=== PATIENT | female | born 1980 | race Hispanic/Latino ===

== ENCOUNTER 2022-08-15 15:10 | Inpatient (IN) | payer MEDICARE, OTHER ==
[~2022-08-15 15:10] MED LIST: Iopamidol-370 76% 500 ML MDV (1 ML CHARGE) ONE
[2022-08-15] MEDS ORDERED: fentaNYL 50 mcg/mL 1 mL Vial ONE (15:25)
[2022-08-15] MEDS ORDERED: Ondansetron PF 4 MG/2 ML Vial ONE (15:25)
[2022-08-15 15:44] LABS: #Eosinphils 0.1 thou/uL (0.0-0.7); #Monocytes 0.6 thou/uL (0.11-0.59); #Neutrophils 9.2 thou/uL (1.40-6.50); %Basophils 0.3 % (0.0-1.0); %Eosinophils 0.7 % (0.0-10.0); %Lymphocytes 21.1 % (21.0-51.0); %Monocytes 4.8 % (0.0-10.0); %Neutrophils 72.8 % (42.0-75.0); Hemoglobin 13.5 g/dL (12.0-16.0); Mean Corpuscular HGB CONC 32.4 g/dL (32.0-36.0); Mean Corpuscular Hemoglobin 29.2 pg (27.0-31.0); Mean Corpuscular Volume 90.3 fl (78.0-98.0); Mean Platelet Volume 10.4 fL (7.4-10.4); Platelet Count 363 10x3/uL (130-400); RBC Distribution Width 13.9 % (11.5-14.5); Red Blood Cell (RBC) Count 4.62 mill/uL (4.20-5.40); White Blood Cell (WBC) Count 12.6 10x3/uL (4.8-10.8)
[2022-08-15 16:08] LABS: ALT (SGPT) 50 U/L (8-55); AST (SGOT) 41 U/L (5-34); Albumin 4.2 g/dL (3.5-5.0); Alkaline Phosphatase 102 U/L (40-110); Anion Gap 18 mmol/L (10-20); BUN (Urea Nitrogen) 8 mg/dL (7.0-18.7); Bilirubin, Total 0.3 mg/dL (0.2-1.2); Calc. Creatinine Clearance 0 mL/min (70-130); Calcium 9.6 mg/dL (7.8-10.44); Carbon Dioxide 19 mmol/L (22-29); Chloride 106 mmol/L (98-107); Estimated GFR 84; Globulin 2.8 g/dL (2.4-3.5); Glucose 101 mg/dL (70-105); Lipase 19 U/L (8-78); Potassium 3.5 mmol/L (3.5-5.1); Sodium 139 mmol/L (136-145)
[2022-08-15] MEDS ORDERED: LORazepam 2 MG/ML SYR.(CARPUJECT) ONE (16:13)
[2022-08-15] MEDS ORDERED: Morphine 4 MG/ML VIAL ONE (16:33)
[2022-08-15] MEDS ORDERED: Piperacillin/Tazobactam 4.5 GM VIAL ONE (16:34)
[2022-08-15] MEDS ORDERED: Dicyclomine 20 MG/2 ML VIAL ONE (16:34)
[2022-08-15 16:53] LABS: Bilirubin Negative (Negative); Blood, Urine Negative (Negative); CAUTI Indications for Culture Pelvic or flank pain; Clarity Clear (Clear); Glucose, Urine (Dipstick) Normal (Negative); Ketone, Urine Negative (Negative); Leukocyte Negative Leu/uL (Negative); Nitrite Negative (Negative); Protein, Urine (Dipstick) 20 mg/dL (Neg-Trace); Specific Gravity, Urine 1.043 (1.002-1.036); Squamous Epithelial 21-50 HPF (0-3); Urobilinogen Normal mg/dL (Less than 2)
[2022-08-15 16:54] LABS: Bacteria/HPF 1+ HPF (None Seen)
[2022-08-15 16:55] LABS: Urine Culture Reflex No No
[2022-08-15] MEDS ORDERED: Acetaminophen 325 MG TAB PO PRN (17:43)
[2022-08-15] MEDS ORDERED: Dextrose 5% in Water 1,000 ML IV PRN (17:55)
[2022-08-15] MEDS ORDERED: Glucagon 1 MG/ML KIT IM PRN (17:55)
[2022-08-15] MEDS ORDERED: HumaLOG 300 UNITS/3 ML VIAL SC PRN ×2 (17:55)
[2022-08-15] MEDS ORDERED: Dextrose 50% Abboject 50 ML SYRINGE SLOW IVP PRN (17:55)
[2022-08-15 18:44] LABS: Lactic Acid 1.8 mmol/L (0.5-2.2)
[2022-08-15 18:51] VITALS: BMI 54.1
[2022-08-15] MEDS: Arformoterol 15 MCG/2 ML NEB NEB SCH (18:52)
[2022-08-15] MEDS: Budesonide 0.5 MG/2 ML NEB NEB SCH (18:52)
[2022-08-15] MEDS: Morphine 4 MG/ML VIAL SLOW IVP PRN ×2 (18:55→23:48)
[2022-08-15] MEDS: Ondansetron PF 4 MG/2 ML Vial IVP PRN (18:55)
[2022-08-15] MEDS: Sodium Chloride 0.9% 1,000 ML IV SCH (18:56)
[2022-08-15] MEDS: Piperacillin/Tazobactam 3.375 GM in Sodium Chloride 0.9% 100 ML IVPB SCH (20:20)
[2022-08-15] MEDS: Pregabalin 50 MG CAP PO SCH (20:20)
[2022-08-15] MEDS: tiZANidine HCl 4 MG TAB PO SCH (20:21)
[2022-08-15] MEDS: Pantoprazole 40 MG VIAL IVP SCH (20:21)
[2022-08-15] MEDS: Topiramate 100 MG TAB PO SCH (20:21)
[2022-08-15] MEDS: traZODone HCl 50 MG TAB PO SCH (20:22)
[2022-08-15] MEDS: oxyCODONE/Acetaminophen 5 mg/325 mg Tablet PO PRN (20:50)
[2022-08-15] MEDS: ALPRAZolam 1 MG TAB PO PRN (20:51)
[2022-08-15] MEDS ORDERED: OXcarbazepine 300 MG TAB PO SCH (21:00)
[2022-08-16] MEDS: Piperacillin/Tazobactam 3.375 GM in Sodium Chloride 0.9% 100 ML IVPB SCH ×3 (03:41→21:39)
[2022-08-16] MEDS: Morphine 4 MG/ML VIAL SLOW IVP PRN ×2 (03:50→08:32)
[2022-08-16 06:23] LABS: #Eosinphils 0.2 thou/uL (0.0-0.7); #Monocytes 0.7 thou/uL (0.11-0.59); #Neutrophils 6.3 thou/uL (1.40-6.50); %Basophils 0.3 % (0.0-1.0); %Eosinophils 1.7 % (0.0-10.0); %Lymphocytes 28.1 % (21.0-51.0); %Monocytes 7.1 % (0.0-10.0); %Neutrophils 62.6 % (42.0-75.0); Hemoglobin 11.9 g/dL (12.0-16.0); Mean Corpuscular HGB CONC 32.3 g/dL (32.0-36.0); Mean Corpuscular Hemoglobin 29.6 pg (27.0-31.0); Mean Corpuscular Volume 91.5 fl (78.0-98.0); Mean Platelet Volume 9.8 fL (7.4-10.4); Red Blood Cell (RBC) Count 4.02 mill/uL (4.20-5.40); White Blood Cell (WBC) Count 10.1 10x3/uL (4.8-10.8)
[2022-08-16 06:28] LABS: Platelet Count 255 10x3/uL (130-400)
[2022-08-16 06:43] LABS: Anion Gap 12 mmol/L (10-20); BUN (Urea Nitrogen) 8 mg/dL (7.0-18.7); Calc. Creatinine Clearance 201 mL/min (70-130); Calcium 8.9 mg/dL (7.8-10.44); Carbon Dioxide 23 mmol/L (22-29); Chloride 110 mmol/L (98-107); Estimated GFR 95; Glucose 83 mg/dL (70-105); Potassium 3.5 mmol/L (3.5-5.1); Sodium 141 mmol/L (136-145)
[2022-08-16] MEDS: Arformoterol 15 MCG/2 ML NEB NEB SCH (07:02)
[2022-08-16] MEDS: Budesonide 0.5 MG/2 ML NEB NEB SCH (07:02)
[2022-08-16] MEDS: Bupropion 150 MG XL TAB PO SCH (08:31)
[2022-08-16] MEDS: Pregabalin 50 MG CAP PO SCH ×3 (08:31→21:34)
[2022-08-16] MEDS: DULoxetine 60 MG CAP PO SCH (08:31)
[2022-08-16] MEDS: tiZANidine HCl 4 MG TAB PO SCH ×3 (08:31→21:35)
[2022-08-16] MEDS: Topiramate 100 MG TAB PO SCH ×2 (08:32→21:34)
[2022-08-16] MEDS: Ondansetron PF 4 MG/2 ML Vial IVP PRN (08:39)
[2022-08-16] MEDS ORDERED: Polyethylene Glycol 3350 17 GM Packet PO SCH (12:15)
[2022-08-16] MEDS ORDERED: Hydrocortisone Acetate 25 MG Suppository PR SCH (12:15)
[2022-08-16] MEDS ORDERED: Docusate 100 MG CAP PO SCH (12:15)
[2022-08-16] MEDS: oxyCODONE/Acetaminophen 5 mg/325 mg Tablet PO PRN ×3 (13:44→22:09)
[2022-08-16] MEDS: Mometasone 200 MCG/Formoterol 5 MCG 120 PUFF INHALER INH SCH (18:48)
[2022-08-16] MEDS: ALPRAZolam 1 MG TAB PO PRN (21:34)
[2022-08-16] MEDS: Pantoprazole 40 MG VIAL IVP SCH (21:35)
[2022-08-16] MEDS: Polyethylene Glycol 3350 17 GM Packet PO SCH (21:35)
[2022-08-16] MEDS: Sodium Chloride 0.9% 1,000 ML IV SCH ×2 (21:39→22:52)
[2022-08-16] MEDS: traZODone HCl 50 MG TAB PO SCH (22:09)
[2022-08-16 23:11] LABS: Campy jejuni + coli by PCR Negative (Negative); STEC Shiga Toxin 1+2 Negative (Negative); Salmonella spp. by PCR Negative (Negative); Shigella spp + EIEC by PCR Negative (Negative)
[2022-08-17 00:42] VITALS: TEMP 97.8
[2022-08-17] MEDS: Piperacillin/Tazobactam 3.375 GM in Sodium Chloride 0.9% 100 ML IVPB SCH (03:05)
[2022-08-17] MEDS: Mometasone 200 MCG/Formoterol 5 MCG 120 PUFF INHALER INH SCH (07:25)
[2022-08-17] MEDS: Pregabalin 50 MG CAP PO SCH (07:56)
[2022-08-17] MEDS: Polyethylene Glycol 3350 17 GM Packet PO SCH (07:56)
[2022-08-17] MEDS: Bupropion 150 MG XL TAB PO SCH (07:56)
[2022-08-17] MEDS: Topiramate 100 MG TAB PO SCH (07:57)
[2022-08-17] MEDS: tiZANidine HCl 4 MG TAB PO SCH (07:57)
[2022-08-17] MEDS: DULoxetine 60 MG CAP PO SCH (07:57)
[2022-08-17] MEDS: oxyCODONE/Acetaminophen 5 mg/325 mg Tablet PO PRN (08:00)
[2022-08-17 08:34] VITALS: BP 115/69
[2022-08-17] MEDS ORDERED: Docusate 100 MG CAP PO SCH (09:00)
== END 2022-08-17 13:03 | disposition home or self-care (01) | DRG 392 ==
LOC: ERS 15:10 → T4-B 16:52 → OBSVTOIN 08-16 13:07
PROVIDERS: ADMIT Family Medicine; ATTEND Internal Medicine
DX: K59.09 Other constipation (principal); Z68.43 Body mass index [BMI] 50.0-59.9, adult; J96.11 Chronic respiratory failure with hypoxia; E87.20 Acidosis, unspecified; J44.9 Chronic obstructive pulmonary disease, unspecified; E11.9 Type 2 diabetes mellitus without complications; E66.01 Morbid (severe) obesity due to excess calories; G89.29 Other chronic pain; F32.A Depression, unspecified; F41.9 Anxiety disorder, unspecified; G47.33 Obstructive sleep apnea (adult) (pediatric); E66.9 Obesity, unspecified; G40.909 Epilepsy, unspecified, not intractable, without status epilepticus; I50.9 Heart failure, unspecified; K64.8 Other hemorrhoids; K64.4 Residual hemorrhoidal skin tags; Z98.2 Presence of cerebrospinal fluid drainage device; Z79.899 Other long term (current) drug therapy; Z79.891 Long term (current) use of opiate analgesic; Z79.84 Long term (current) use of oral hypoglycemic drugs; Z98.84 Bariatric surgery status; Z87.891 Personal history of nicotine dependence
CPT/HCPCS: 36415; 36416; 74177; 80048; 80053; 81001; 82274; 83605; 83690; 85025; 87040; 87324; 87449; 87505; 93005; 94640; 96375; 96376; C9113; G0378; J2060; J2270; J2405; J2543; J3010; J3490; J7050; J7611; J7626; Q9967

== ENCOUNTER 2022-10-30 01:13 | Emergency (ER) | payer MEDICARE, OTHER ==
[2022-10-30 01:52] LABS: #Eosinphils 0.2 thou/uL (0.0-0.7); #Monocytes 0.6 thou/uL (0.11-0.59); #Neutrophils 8.6 thou/uL (1.40-6.50); %Basophils 0.2 % (0.0-1.0); %Eosinophils 1.5 % (0.0-10.0); %Monocytes 4.9 % (0.0-10.0); %Neutrophils 68.1 % (42.0-75.0); Hematocrit 37.9 % (36.0-47.0); Hemoglobin 12.2 g/dL (12.0-16.0); Mean Corpuscular HGB CONC 32.2 g/dL (32.0-36.0); Mean Corpuscular Hemoglobin 29.6 pg (27.0-31.0); Platelet Count 280 10x3/uL (130-400); RBC Distribution Width 13.8 % (11.5-14.5); Red Blood Cell (RBC) Count 4.12 mill/uL (4.20-5.40); White Blood Cell (WBC) Count 12.6 10x3/uL (4.8-10.8)
[2022-10-30] MEDS ORDERED: Acetaminophen 500 MG TAB ONE (01:53)
[2022-10-30 02:01] LABS: BHCG - Serum Negative (NEGATIVE); Pregs Control Background? CLEAR/WHITE (CLR/WHITE); Pregs Control Bar Appear? YES (CONTROL BAR)
[2022-10-30 02:21] LABS: ALT (SGPT) 26 U/L (8-55); AST (SGOT) 19 U/L (5-34); Albumin 3.9 g/dL (3.5-5.0); Alkaline Phosphatase 112 U/L (40-110); Anion Gap 15 mmol/L (10-20); BUN (Urea Nitrogen) 10 mg/dL (7.0-18.7); Bilirubin, Total Less than 0.2 mg/dL (0.2-1.2); Calc. Creatinine Clearance 0 mL/min (70-130); Calcium 9.8 mg/dL (7.8-10.44); Carbon Dioxide 18 mmol/L (22-29); Chloride 114 mmol/L (98-107); Estimated GFR 84; Globulin 2.8 g/dL (2.4-3.5); Glucose 87 mg/dL (70-105); Potassium 3.5 mmol/L (3.5-5.1); Protein, Total 6.7 g/dL (6.0-8.3); Sodium 143 mmol/L (136-145)
[2022-10-30] MEDS ORDERED: Morphine 4 MG/ML VIAL ONE (02:28)
[2022-10-30] MEDS ORDERED: ALPRAZolam 0.25 MG TAB ONE (03:13)
[2022-10-30] MEDS ORDERED: Iopamidol-370 76% 500 ML MDV (1 ML CHARGE) ONE (10:58)
== END 2022-10-30 06:24 | disposition home or self-care (01) ==
LOC: ERS 01:13
DX: K92.1 Melena (principal); I11.0 Hypertensive heart disease with heart failure; I50.9 Heart failure, unspecified; E11.9 Type 2 diabetes mellitus without complications; J44.9 Chronic obstructive pulmonary disease, unspecified
CPT/HCPCS: 36415; 74174; 80053; 84703; 85025; 86850; 86900; 86901; 93005; 94760; 96374; 96375; J1790; J2270

== ENCOUNTER 2023-02-23 23:35 | Emergency (ER) | payer MEDICARE, OTHER ==
[2023-02-24] MEDS ORDERED: Ondansetron PF 4 MG/2 ML Vial ONE (00:53)
[2023-02-24] MEDS ORDERED: Morphine 4 MG/ML VIAL ONE (00:53)
[2023-02-24 01:06] LABS: #Eosinphils 0.2 thou/uL (0.0-0.7); #Monocytes 0.9 thou/uL (0.11-0.59); #Neutrophils 7.8 thou/uL (1.40-6.50); %Basophils 0.2 % (0.0-1.0); %Eosinophils 1.6 % (0.0-10.0); %Lymphocytes 29.9 % (21.0-51.0); %Monocytes 7.2 % (0.0-10.0); %Neutrophils 60.7 % (42.0-75.0); Hematocrit 33.8 % (36.0-47.0); Hemoglobin 10.6 g/dL (12.0-16.0); Mean Corpuscular HGB CONC 31.4 g/dL (32.0-36.0); Mean Corpuscular Hemoglobin 29.4 pg (27.0-31.0); Mean Corpuscular Volume 93.9 fl (78.0-98.0); Mean Platelet Volume 10.6 fL (7.4-10.4); Platelet Count 241 10x3/uL (130-400); RBC Distribution Width 14.3 % (11.5-14.5); White Blood Cell (WBC) Count 12.8 10x3/uL (4.8-10.8)
[2023-02-24 01:34] LABS: ALT (SGPT) 12 U/L (8-55); AST (SGOT) 10 U/L (5-34); Albumin 3.4 g/dL (3.5-5.0); Alkaline Phosphatase 100 U/L (40-110); Anion Gap 11 mmol/L (10-20); BUN (Urea Nitrogen) 18 mg/dL (7.0-18.7); Bilirubin, Total 0.2 mg/dL (0.2-1.2); Calc. Creatinine Clearance 0 mL/min (70-130); Calcium 8.2 mg/dL (7.8-10.44); Carbon Dioxide 20 mmol/L (22-29); Chloride 112 mmol/L (98-107); Estimated GFR 95; Globulin 2.6 g/dL (2.4-3.5); Glucose 108 mg/dL (70-105); Lipase 65 U/L (8-78); Potassium 4.2 mmol/L (3.5-5.1); Sodium 139 mmol/L (136-145)
[2023-02-24] MEDS ORDERED: Iopamidol-370 76% 500 ML MDV (1 ML CHARGE) ONE (09:07)
== END 2023-02-24 04:35 | disposition home or self-care (01) ==
LOC: ERS 23:35
DX: K64.4 Residual hemorrhoidal skin tags (principal); R10.32 Left lower quadrant pain; I11.0 Hypertensive heart disease with heart failure; I50.9 Heart failure, unspecified; J44.9 Chronic obstructive pulmonary disease, unspecified; E11.9 Type 2 diabetes mellitus without complications
CPT/HCPCS: 36415; 74177; 80053; 83690; 85025; 96374; 96375; J2270; J2405; Q9967

== ENCOUNTER 2023-03-16 12:47 | Emergency (ER) | payer OTHER ==
[2023-03-16] MEDS ORDERED: Ondansetron PF 4 MG/2 ML Vial ONE (13:28)
[2023-03-16] MEDS ORDERED: Morphine 4 MG/ML VIAL ONE (13:28)
[2023-03-16 14:17] LABS: #Eosinphils 0.2 thou/uL (0.0-0.7); #Monocytes 0.6 thou/uL (0.11-0.59); #Neutrophils 6.8 thou/uL (1.40-6.50); %Basophils 0.2 % (0.0-1.0); %Eosinophils 1.6 % (0.0-10.0); %Lymphocytes 24.9 % (21.0-51.0); %Monocytes 6.2 % (0.0-10.0); %Neutrophils 66.8 % (42.0-75.0); Hematocrit 35.3 % (36.0-47.0); Hemoglobin 11.1 g/dL (12.0-16.0); Mean Corpuscular HGB CONC 31.4 g/dL (32.0-36.0); Mean Corpuscular Hemoglobin 29.1 pg (27.0-31.0); Mean Corpuscular Volume 92.4 fl (78.0-98.0); Platelet Count 299 10x3/uL (130-400); Red Blood Cell (RBC) Count 3.82 mill/uL (4.20-5.40); White Blood Cell (WBC) Count 10.1 10x3/uL (4.8-10.8)
[2023-03-16 14:43] LABS: ALT (SGPT) 16 U/L (8-55); AST (SGOT) 15 U/L (5-34); Albumin 3.8 g/dL (3.5-5.0); Alkaline Phosphatase 102 U/L (40-110); Anion Gap 7 mmol/L (10-20); BUN (Urea Nitrogen) 18 mg/dL (7.0-18.7); Bilirubin, Total Less than 0.2 mg/dL (0.2-1.2); Calc. Creatinine Clearance 0 mL/min (70-130); Calcium 8.6 mg/dL (7.8-10.44); Carbon Dioxide 24 mmol/L (22-29); Chloride 113 mmol/L (98-107); Estimated GFR 93; Globulin 2.9 g/dL (2.4-3.5); Glucose 115 mg/dL (70-105); Magnesium 2.1 mg/dL (1.6-2.6); Potassium 3.8 mmol/L (3.5-5.1); Protein, Total 6.7 g/dL (6.0-8.3); Sodium 140 mmol/L (136-145)
[2023-03-16 14:45] LABS: Troponin I Less than 0.010 ng/mL (< 0.028)
[2023-03-16 15:56] LABS: Bilirubin Negative (Negative); Blood, Urine Negative (Negative); CAUTI Indications for Culture Pelvic or flank pain; Clarity Turbid (Clear); Glucose, Urine (Dipstick) Normal (Negative); Ketone, Urine Negative (Negative); Leukocyte 75 Leu/uL (Negative); Nitrite Negative (Negative); Protein, Urine (Dipstick) Negative (Neg-Trace); RBC/HPF 0-3 HPF (0-3); Specific Gravity, Urine 1.018 (1.002-1.036); Squamous Epithelial 21-50 HPF (0-3); Urobilinogen Normal mg/dL (Less than 2); WBC/HPF 0-3 HPF (0-3); pH, Urine 5.5 (5.0-9.0)
[2023-03-16 16:06] LABS: Bacteria/HPF 1+ HPF (None Seen)
[2023-03-16 16:08] LABS: Urine Culture Reflex No No
[2023-03-16] MEDS ORDERED: Ketorolac Tromethamine 30 MG (1 mL) VIAL ONE (17:14)
== END 2023-03-16 18:50 | disposition home or self-care (01) ==
LOC: ERS 12:47
DX: S09.90XA Unspecified injury of head, initial encounter (principal); S39.012A Strain of muscle, fascia and tendon of lower back, initial encounter; I50.9 Heart failure, unspecified; J44.9 Chronic obstructive pulmonary disease, unspecified; E11.9 Type 2 diabetes mellitus without complications; W01.0XXA Fall on same level from slipping, tripping and stumbling without subsequent striking against object, initial encounter; Z79.84 Long term (current) use of oral hypoglycemic drugs; Z79.899 Other long term (current) drug therapy
CPT/HCPCS: 70450; 71045; 72100; 72125; 80053; 81001; 83735; 84484; 85025; 93005; 96374; 96375; J1885; J2270; J2405

== ENCOUNTER 2023-04-13 20:56 | Emergency (ER) | payer OTHER ==
[2023-04-13] MEDS ORDERED: Ketorolac Tromethamine 30 MG (1 mL) VIAL ONE (22:32)
[2023-04-13] MEDS ORDERED: HYDROcodone/Acetaminophen 10/325 mg Tablet ONE (23:30)
== END 2023-04-13 23:58 | disposition home or self-care (01) ==
LOC: ERS 20:56
DX: S00.03XA Contusion of scalp, initial encounter (principal); S80.02XA Contusion of left knee, initial encounter; I50.9 Heart failure, unspecified; E11.9 Type 2 diabetes mellitus without complications; J44.9 Chronic obstructive pulmonary disease, unspecified; W18.30XA Fall on same level, unspecified, initial encounter
CPT/HCPCS: 70450; 72170; 96372; J1885

== ENCOUNTER 2023-07-18 23:40 | Observation (INO) | payer MEDICARE, OTHER ==
[2023-07-19 01:49] LABS: #Basophils Less than 0.03 10x3/uL (0.0-0.2); %Basophils 0.2 % (0.0-1.0); %Eosinophils 1.2 % (0.0-10.0); %Lymphocytes 27.1 % (21.0-51.0); %Monocytes 3.8 % (0.0-10.0); %Neutrophils 67.5 % (42.0-75.0); Hematocrit 40.7 % (36.0-47.0); Mean Corpuscular HGB CONC 31.9 g/dL (32.0-36.0); Mean Corpuscular Hemoglobin 28.7 pg (27.0-31.0); Mean Corpuscular Volume 89.8 fL (78.0-98.0); Mean Platelet Volume 9.6 fL (7.4-10.4); Platelet Count 305 10x3/uL (130-400); Red Blood Cell (RBC) Count 4.53 mill/uL (4.20-5.40)
[2023-07-19 02:04] LABS: INR-International Normal Ratio 0.7; Prothrombin Time 10.3 sec (12.0-14.7)
[2023-07-19 02:05] LABS: PTT 23.3 sec (22.9-36.1)
[2023-07-19 02:10] LABS: Anion Gap 16 mmol/L (10-20); BUN (Urea Nitrogen) 12 mg/dL (7.0-18.7); Calc. Creatinine Clearance 0 mL/min (70-130); Carbon Dioxide 22 mmol/L (22-29); Chloride 109 mmol/L (98-107); Potassium 3.6 mmol/L (3.5-5.1); Sodium 143 mmol/L (136-145)
[2023-07-19 02:11] LABS: ALT (SGPT) 32 U/L (8-55); AST (SGOT) 22 U/L (5-34); Albumin 3.8 g/dL (3.5-5.0); Alkaline Phosphatase 111 U/L (40-110); Bilirubin, Total 0.4 mg/dL (0.2-1.2); Calcium 9.7 mg/dL (7.8-10.44); Estimated GFR 82; Globulin 3.8 g/dL (2.4-3.5); Glucose 87 mg/dL (70-105); Protein, Total 7.6 g/dL (6.0-8.3)
[2023-07-19] MEDS ORDERED: Morphine 4 MG/ML VIAL ONE (03:38)
[2023-07-19 04:53] LABS: BHCG - Serum Negative (NEGATIVE); Pregs Control Background? CLEAR/WHITE (CLR/WHITE); Pregs Control Bar Appear? YES (CONTROL BAR)
[2023-07-19 06:33] LABS: Bilirubin Negative (Negative); Blood, Urine Negative (Negative); Glucose, Urine (Dipstick) Negative (Negative); Ketone, Urine Negative (Negative); Leukocyte Negative (Negative); Nitrite Negative (Negative); Protein, Urine (Dipstick) Negative (Neg-Trace); Specific Gravity, Urine 1.015 (1.005-1.030); Urobilinogen 0.2 mg/dL (Less than 2); pH, Urine 5.5 (5.0-9.0)
[2023-07-19 06:41] LABS: Bacteria/HPF None Seen HPF (None Seen); CAUTI Indications for Culture Pelvic or flank pain; RBC/HPF 0-3 HPF (0-3); Squamous Epithelial 0-3 HPF (0-3); WBC/HPF 0-3 HPF (0-3)
[2023-07-19 06:44] LABS: Clarity Clear (Clear)
[2023-07-19 06:46] LABS: Urine Culture Reflex No No
[2023-07-19] MEDS ORDERED: Guaifenesin DM 100-10/5 ML UDCUP PO PRN (07:40)
[2023-07-19] MEDS ORDERED: Glucagon 1 MG/ML KIT IM PRN (07:46)
[2023-07-19] MEDS ORDERED: HumaLOG 300 UNITS/3 ML VIAL SC PRN (07:46)
[2023-07-19] MEDS ORDERED: Dextrose 50% Abboject 50 ML SYRINGE SLOW IVP PRN (07:46)
[2023-07-19] MEDS ORDERED: Dextrose 5% in Water 1,000 ML IV PRN (07:46)
[2023-07-19] MEDS: Promethazine HCl 25 MG in Sodium Chloride 0.9% 50 ML IVPB SCH (08:51)
[2023-07-19] MEDS: Sodium Chloride 0.9% 1,000 ML IV SCH (08:51)
[2023-07-19 09:06] LABS: #Basophils Less than 0.03 10x3/uL (0.0-0.2); %Basophils 0.2 % (0.0-1.0); %Eosinophils 1.3 % (0.0-10.0); %Lymphocytes 27.5 % (21.0-51.0); %Monocytes 5.5 % (0.0-10.0); %Neutrophils 65.3 % (42.0-75.0); Hematocrit 35.8 % (36.0-47.0); Hemoglobin 11.5 g/dL (12.0-16.0); Mean Corpuscular HGB CONC 32.1 g/dL (32.0-36.0); Mean Corpuscular Hemoglobin 28.7 pg (27.0-31.0); Mean Corpuscular Volume 89.3 fL (78.0-98.0); Mean Platelet Volume 9.8 fL (7.4-10.4); Platelet Count 260 10x3/uL (130-400); RBC Distribution Width 14.9 % (11.5-14.5); Red Blood Cell (RBC) Count 4.01 mill/uL (4.20-5.40)
[2023-07-19] MEDS: Pantoprazole 40 MG VIAL IVP SCH (09:28)
[2023-07-19] MEDS: HYDROcodone/Acetaminophen 5/325 mg Tablet PO PRN (09:28)
[2023-07-19 09:44] VITALS: BMI 50.8
[2023-07-19] MEDS ORDERED: Iopamidol-370 76% 500 ML MDV (1 ML CHARGE) ONE (10:54)
[2023-07-19] MEDS: oxyCODONE 5 MG TAB PO PRN (11:37)
[2023-07-19] MEDS: Ipratropium/Albuterol 3 ML NEB NEB SCH (13:56)
[2023-07-19] MEDS: Ondansetron PF 4 MG/2 ML Vial IVP PRN (14:25)
[2023-07-19] MEDS: Lorazepam 2 MG/ML VIAL SLOW IVP PRN (15:43)
[2023-07-19] MEDS: Lidocaine 4% Patch TD SCH (18:18)
[2023-07-19] MEDS: Mometasone 100 MCG HFA INHALER (RT USE) INH SCH (19:20)
[2023-07-19] MEDS: Ondansetron ODT 4 MG TAB PO PRN (19:51)
[2023-07-20 05:49] LABS: #Basophils 0.03 10x3/uL (0.0-0.2); %Basophils 0.3 % (0.0-1.0); %Eosinophils 1.7 % (0.0-10.0); %Lymphocytes 27.3 % (21.0-51.0); %Monocytes 5.1 % (0.0-10.0); %Neutrophils 65.4 % (42.0-75.0); Hematocrit 36.8 % (36.0-47.0); Hemoglobin 11.7 g/dL (12.0-16.0); Mean Corpuscular HGB CONC 31.8 g/dL (32.0-36.0); Mean Corpuscular Hemoglobin 28.7 pg (27.0-31.0); Mean Corpuscular Volume 90.4 fL (78.0-98.0); Mean Platelet Volume 9.8 fL (7.4-10.4); Platelet Count 288 10x3/uL (130-400); RBC Distribution Width 14.9 % (11.5-14.5); Red Blood Cell (RBC) Count 4.07 mill/uL (4.20-5.40)
[2023-07-20] MEDS: Acetaminophen 325 MG TAB PO PRN (06:04)
[2023-07-20] MEDS: Transdermal Patch Removal TOP SCH (06:10)
[2023-07-20 06:16] LABS: ALT (SGPT) 24 U/L (8-55); AST (SGOT) 16 U/L (5-34); Albumin 3.4 g/dL (3.5-5.0); Alkaline Phosphatase 103 U/L (40-110); Anion Gap 13 mmol/L (10-20); BUN (Urea Nitrogen) 9 mg/dL (7.0-18.7); Bilirubin, Total 0.3 mg/dL (0.2-1.2); Calc. Creatinine Clearance 202 mL/min (70-130); Calcium 9.3 mg/dL (7.8-10.44); Carbon Dioxide 21 mmol/L (22-29); Chloride 112 mmol/L (98-107); Estimated GFR 104; Globulin 3.2 g/dL (2.4-3.5); Glucose 90 mg/dL (70-105); Protein, Total 6.6 g/dL (6.0-8.3); Sodium 142 mmol/L (136-145)
[2023-07-20] MEDS ORDERED: Hydrocortisone Acetate 25 MG Suppository PR PRN (08:36)
[2023-07-20 10:22] VITALS: BP 126/79; TEMP 98.2
[2023-07-20] MEDS: Hydrocortisone 2.5% Cream 30 GM TUBE TOP SCH (10:23)
[2023-07-20] MEDS: Metamucil PACK PO SCH (10:50)
== END 2023-07-20 13:29 | disposition home or self-care (01) ==
LOC: ERS 23:40 → T4-A 07-19 08:24
PROVIDERS: ADMIT Internal Medicine; ATTEND Hospitalist
DX: K64.9 Unspecified hemorrhoids (principal); J44.9 Chronic obstructive pulmonary disease, unspecified; E11.9 Type 2 diabetes mellitus without complications; J96.10 Chronic respiratory failure, unspecified whether with hypoxia or hypercapnia; F32.A Depression, unspecified; F41.9 Anxiety disorder, unspecified; M54.50 Low back pain, unspecified; E66.01 Morbid (severe) obesity due to excess calories; Z68.43 Body mass index [BMI] 50.0-59.9, adult; Z99.81 Dependence on supplemental oxygen; Z90.710 Acquired absence of both cervix and uterus; Z90.722 Acquired absence of ovaries, bilateral; Z79.899 Other long term (current) drug therapy; Z79.84 Long term (current) use of oral hypoglycemic drugs; Z88.8 Allergy status to other drugs, medicaments and biological substances; Z90.49 Acquired absence of other specified parts of digestive tract; Z98.84 Bariatric surgery status
CPT/HCPCS: 74177; 80053 ×2; 81001; 82962 ×2; 84703; 85025 ×3; 85610; 85730; 86850; 86900; 86901; 94640 ×5; 96374; 96375; 96376 ×2; 99285; G0378 ×3; 36415; 36416; C9113; J2060; J2270; J2405; J2550; J7050; J7620; Q0162; Q9967

== ENCOUNTER 2023-12-12 12:09 | Observation (INO) | payer MEDICARE ==
[2023-12-12] MEDS ORDERED: levETIRAcetam 500 MG (5 mL) VIAL ONE (12:31)
[2023-12-12 13:11] LABS: #Basophils 0.03 10x3/uL (0.0-0.2); %Basophils 0.3 % (0.0-1.0); %Eosinophils 1.1 % (0.0-10.0); %Lymphocytes 22.7 % (21.0-51.0); %Monocytes 5.9 % (0.0-10.0); %Neutrophils 69.5 % (42.0-75.0); Hemoglobin 11.5 g/dL (12.0-16.0); Mean Corpuscular HGB CONC 31.1 g/dL (32.0-36.0); Mean Corpuscular Hemoglobin 28.3 pg (27.0-31.0); Mean Corpuscular Volume 91.1 fL (78.0-98.0); Mean Platelet Volume 10.4 fL (7.4-10.4); Platelet Count 301 10x3/uL (130-400); RBC Distribution Width 13.8 % (11.5-14.5); Red Blood Cell (RBC) Count 4.06 mill/uL (4.20-5.40)
[2023-12-12 13:21] LABS: BHCG - Serum Negative (NEGATIVE); Pregs Control Background? CLEAR/WHITE (CLR/WHITE); Pregs Control Bar Appear? YES (CONTROL BAR)
[2023-12-12 13:27] LABS: ALT (SGPT) 17 U/L (8-55); AST (SGOT) 16 U/L (5-34); Albumin 3.3 g/dL (3.5-5.0); Alkaline Phosphatase 114 U/L (40-110); Anion Gap 12 mmol/L (10-20); BUN (Urea Nitrogen) 17 mg/dL (7.0-18.7); Bilirubin, Total 0.1 mg/dL (0.2-1.2); Calc. Creatinine Clearance 0 mL/min (70-130); Calcium 8.7 mg/dL (7.8-10.44); Carbon Dioxide 22 mmol/L (22-29); Chloride 113 mmol/L (98-107); Estimated GFR 95; Glucose 80 mg/dL (70-105); Potassium 4.3 mmol/L (3.5-5.1); Protein, Total 6.3 g/dL (6.0-8.3); Sodium 143 mmol/L (136-145)
[2023-12-12] MEDS ORDERED: Lorazepam 2 MG/ML VIAL ONE (13:40)
[2023-12-12] MEDS ORDERED: Metoclopramide HCl 10 MG (2 mL) VIAL ONE (14:03)
[2023-12-12] MEDS ORDERED: diphenhydrAMINE 50 MG/ML VIAL ONE (14:03)
[2023-12-12] MEDS ORDERED: Ketorolac Tromethamine 30 MG (1 mL) VIAL ONE (14:03)
[2023-12-12] MEDS ORDERED: Glucagon 1 MG/ML KIT IM PRN (15:48)
[2023-12-12] MEDS ORDERED: Dextrose 5% in Water 1,000 ML IV PRN (15:48)
[2023-12-12] MEDS ORDERED: Insulin Lispro 100 UNIT/ML 10 ML VIAL SC PRN ×2 (15:48)
[2023-12-12] MEDS ORDERED: Dextrose 50% Abboject 50 ML SYRINGE SLOW IVP PRN (15:48)
[2023-12-12] MEDS ORDERED: Ipratropium/Albuterol 3 ML NEB NEB PRN (16:56)
[2023-12-12] MEDS ORDERED: Acetaminophen 325 MG TAB PO PRN (16:56)
[2023-12-12] MEDS ORDERED: FLU (Fluarix Triv) TS24-25(6MOS UP)/PF 45 MCG/0.5 ML Syringe IM ONE (17:45)
[2023-12-12] MEDS: Fioricet 325/50/40 mg Tablet PO PRN (18:42)
[2023-12-12] MEDS: Topiramate 100 MG TAB PO SCH (21:45)
[2023-12-12] MEDS: tiZANidine HCl 4 MG TAB PO PRN (21:45)
[2023-12-12] MEDS: OXcarbazepine 300 MG TAB PO SCH (21:45)
[2023-12-12] MEDS: HYDROcodone/Acetaminophen 10/325 mg Tablet PO PRN (22:27)
[2023-12-12 23:24] VITALS: BMI 54.1
[2023-12-13] MEDS ORDERED: Lidocaine 4% Topical Sol 50 ML BOT TOP PRN (00:56)
[2023-12-13] MEDS ORDERED: Lidocaine 2% 6 ML (Jelly) SYR TOP PRN (01:00)
[2023-12-13] MEDS: LORazepam 2 MG/ML SYR.(CARPUJECT) ONE (02:49)
[2023-12-13] MEDS: Lorazepam 2 MG/ML VIAL SLOW IVP SCH (02:54)
[2023-12-13 03:03] LABS: #Basophils 0.03 10x3/uL (0.0-0.2); %Basophils 0.3 % (0.0-1.0); %Eosinophils 1.8 % (0.0-10.0); %Lymphocytes 38.9 % (21.0-51.0); %Neutrophils 52.7 % (42.0-75.0); Hematocrit 35.1 % (36.0-47.0); Hemoglobin 10.5 g/dL (12.0-16.0); Mean Corpuscular HGB CONC 29.9 g/dL (32.0-36.0); Mean Corpuscular Hemoglobin 28.3 pg (27.0-31.0); Mean Corpuscular Volume 94.6 fL (78.0-98.0); Mean Platelet Volume 10.5 fL (7.4-10.4); Platelet Count 396 10x3/uL (130-400); RBC Distribution Width 14.1 % (11.5-14.5); Red Blood Cell (RBC) Count 3.71 mill/uL (4.20-5.40)
[2023-12-13 03:27] LABS: Anion Gap 13 mmol/L (10-20); BUN (Urea Nitrogen) 16 mg/dL (7.0-18.7); Calc. Creatinine Clearance 192 mL/min (70-130); Calcium 8.8 mg/dL (7.8-10.44); Carbon Dioxide 17 mmol/L (22-29); Chloride 115 mmol/L (98-107); Estimated GFR 91; Glucose 70 mg/dL (70-105); Potassium 5.4 mmol/L (3.5-5.1); Sodium 140 mmol/L (136-145)
[2023-12-13] MEDS: BuPROPion XL 150 MG ER.TAB PO SCH (09:29)
[2023-12-13] MEDS: Linaclotide [Linzess] 72 MCG Capsule PO SCH (09:29)
[2023-12-13] MEDS: DULoxetine 60 MG CAP PO SCH (09:29)
[2023-12-13] MEDS: metFORMIN XR 500 MG ER.TAB PO SCH (09:29)
[2023-12-13] MEDS: Enoxaparin 40 MG (0.4 mL) SYRINGE SC SCH (09:29)
[2023-12-13] MEDS: hydrOXYzine 25 MG TAB PO PRN (11:28)
[2023-12-13] MEDS: Ondansetron ODT 4 MG TAB PO PRN (11:28)
[2023-12-13 12:36] VITALS: BP 114/80; TEMP 97.4
[2023-12-13] MEDS ORDERED: hydrOXYzine 25 MG TAB PO SCH (21:00)
== END 2023-12-13 14:58 | disposition home or self-care (01) ==
LOC: ERS 12:09 → 2SE 14:51
PROVIDERS: ADMIT Family Medicine; ATTEND Family Medicine
DX: G93.41 Metabolic encephalopathy (principal); F44.5 Conversion disorder with seizures or convulsions; F41.9 Anxiety disorder, unspecified; J44.9 Chronic obstructive pulmonary disease, unspecified; J96.11 Chronic respiratory failure with hypoxia; G47.33 Obstructive sleep apnea (adult) (pediatric); E11.9 Type 2 diabetes mellitus without complications; K58.9 Irritable bowel syndrome, unspecified; G43.909 Migraine, unspecified, not intractable, without status migrainosus; D64.9 Anemia, unspecified; R94.31 Abnormal electrocardiogram [ECG] [EKG]; F32.A Depression, unspecified; Z90.722 Acquired absence of ovaries, bilateral; Z90.79 Acquired absence of other genital organ(s); Z90.710 Acquired absence of both cervix and uterus; Z99.81 Dependence on supplemental oxygen; Z88.8 Allergy status to other drugs, medicaments and biological substances; Z79.1 Long term (current) use of non-steroidal anti-inflammatories (NSAID); Z79.84 Long term (current) use of oral hypoglycemic drugs; Z79.899 Other long term (current) drug therapy
CPT/HCPCS: 70450; 75809; 80048; 80053; 82962 ×2; 84146; 84703; 85025 ×2; 93005; 95700; 95712; 95957; 96372; 96376; G0378 ×3; J1200; J1650; J1885; J1953; J2060 ×2; J2765; Q0162; 36415; 36416

== ENCOUNTER 2024-03-04 10:55 | Emergency (ER) | payer MEDICARE ==
[2024-03-04 11:29] LABS: #Basophils Less than 0.03 10x3/uL (0.0-0.2); %Basophils 0.2 % (0.0-1.0); %Eosinophils 1.2 % (0.0-10.0); %Lymphocytes 28.9 % (21.0-51.0); %Monocytes 5.3 % (0.0-10.0); %Neutrophils 64.2 % (42.0-75.0); Hematocrit 38.5 % (36.0-47.0); Hemoglobin 12.1 g/dL (12.0-16.0); Mean Corpuscular HGB CONC 31.4 g/dL (32.0-36.0); Mean Corpuscular Hemoglobin 27.1 pg (27.0-31.0); Mean Corpuscular Volume 86.3 fL (78.0-98.0); Platelet Count 279 10x3/uL (130-400); RBC Distribution Width 14.4 % (11.5-14.5); Red Blood Cell (RBC) Count 4.46 mill/uL (4.20-5.40)
[2024-03-04 11:45] LABS: ALT (SGPT) 16 U/L (8-55); AST (SGOT) 18 U/L (5-34); Albumin 3.6 g/dL (3.5-5.0); Alkaline Phosphatase 127 U/L (40-110); Anion Gap 12 mmol/L (10-20); BUN (Urea Nitrogen) 13 mg/dL (7.0-18.7); Bilirubin, Total 0.2 mg/dL (0.2-1.2); Calc. Creatinine Clearance 0 mL/min (70-130); Calcium 8.9 mg/dL (7.8-10.44); Carbon Dioxide 20 mmol/L (22-29); Chloride 112 mmol/L (98-107); Estimated GFR 103; Globulin 3.4 g/dL (2.4-3.5); Glucose 87 mg/dL (70-105); Potassium 4.1 mmol/L (3.5-5.1); Sodium 140 mmol/L (136-145)
[2024-03-04 11:51] LABS: Troponin I Less than 0.010 ng/mL (< 0.028)
[2024-03-04] MEDS ORDERED: Ketorolac Tromethamine 30 MG (1 mL) VIAL ONE ×3 (12:01→14:18)
== END 2024-03-04 14:29 | disposition home or self-care (01) ==
LOC: ERS 10:55
DX: R07.9 Chest pain, unspecified (principal); I50.9 Heart failure, unspecified; E11.9 Type 2 diabetes mellitus without complications; J44.9 Chronic obstructive pulmonary disease, unspecified; Z87.891 Personal history of nicotine dependence; Z79.85 Long-term (current) use of injectable non-insulin antidiabetic drugs; Z79.51 Long term (current) use of inhaled steroids; Z79.84 Long term (current) use of oral hypoglycemic drugs; Z79.899 Other long term (current) drug therapy
CPT/HCPCS: 71045; 80053; 83880; 84484; 85025; 85379; 93005; 96374; 96376; 99285; J1885; 36415